=== PATIENT | female | born 1935 | race Caucasian/White ===

== ENCOUNTER 2016-07-07 09:21 | Emergency (ER) | payer OTHER ==
[2016-07-07 09:27] VITALS: RESP 16
--- NOTE | 2016-07-07 10:18 | EDPHY ---
H & P Time Seen by Provider: 07/07/16 09:43 HPI/ROS: CHIEF COMPLAINT: Fall, left shoulder pain HISTORY OF PRESENT ILLNESS: Patient is a 81-year-old female who presents emergency department after tripping and falling while taking out her trash. She fell forward on the garbage can landed on her left shoulder. She complains of moderate left shoulder pain. It is worse with movement. She also complains of left upper, lateral, posterior rib pain. No shortness of breath or cough. Patient complains of mild right great toe pain and bruising. She is able to ambulate without difficulty. She denies head trauma. No loss of consciousness. No neck or back pain. No focal neurologic deficits. No visual change. She was not lightheaded or dizzy. She had no preceding symptoms. REVIEW OF SYSTEMS: My complete review of systems is negative except as mentioned in the HPI. Past Medical/Surgical History: Includes hypertension, osteoporosis, GERD, depression Past surgical history: Noncontributory Social history: Patient does not smoke Smoking Status: Never smoked Physical Exam: Vitals noted GENERAL: Well-appearing, in no acute distress, alert. HEAD: No evidence of trauma. EYES: PERRLA, EOMI, normal to inspection. ENT: Airway intact, no dental or oral injury, no malocclusion, no hemotympanum , normal external examination. NECK: The trachea is midline. There is no crepitus. The C-spine is nontender. NEXUS criteria is negative (no midline tenderness, no distracting injury, no altered mental status, no recent alcohol use, no focal neurologic deficit). RESPIRATORY: Clear to auscultation bilaterally, no rales, rhonchi or wheezing. There is no crepitus or palpable rib fractures. CVS: Regular rate and rhythm, no rubs, murmurs, or gallops. ABDOMEN: Soft, nontender, nondistended, normal bowel sounds, no bruising or abrasions. Pelvis: Stable. No tenderness palpation. Hips full range of motion. GENITAL/RECTAL: Normal external exam. BACK: Normal to inspection, no spinal tenderness, no spinal step off, no notable bruising or abrasions. Patient has mild left lateral superior posterior chest wall tenderness palpation with no crepitus or palpable deformity. SKIN: Normal color, warm, dry. No pallor or diaphoresis. EXTREMITIES: Right upper extremity: Atraumatic. No visible signs of trauma. No tenderness palpation. Neurovascular intact distally. Left upper extremity: No visible signs of trauma. Mild tenderness to palpation over the distal clavicle. No deltoid or humeral tenderness palpation. Neurovascular intact distally. Right lower extremity: Mild ecchymoses at the base of her right great toe. There is mild tenderness palpation. No palpable deformity. No subungual hematoma. Normal sensation. Left lower extremity: Atraumatic. No visible signs of trauma. No tenderness palpation. Neurovascular intact distally. Atraumatic, neurovascularly intact distally in all extremities, pelvis is stable , hips with full range of motion, moves all extremities freely. NEURO/PSYCH: Alert and oriented x 3, GCS 15, normal mood and affect, normal motor sensory exam. Constitutional: Initial Vital Signs Temperature (C) 36.8 C 07/07/16 09:24 Heart Rate 83 07/07/16 09:24 Respiratory Rate 16 07/07/16 09:24 Blood Pressure 165/72 H 07/07/16 09:24 O2 Sat (%) 96 07/07/16 09:24 O2 Delivery Mode Room Air Allergies/Adverse Reactions: No Known Allergies Allergy (Unverified 07/07/16 09:27) Home Medications: Medication Instructions Recorded Hydrocodone/APAP 5/325 [[place] 1 - 2 tab PO Q4 #9 tab 07/07/16 5/325 (RX)] Medical Decision Making - Diagnostics Imaging Results: Imaging Impressions Shoulder X-Ray 07/07/16 09:32 Impression: Lateral left fourth and fifth rib fractures. 2. Left Shoulder , 3 Views History: Pain post trauma. Fall. Findings: There are acute lateral left fourth and fifth rib fractures. The humeral head is normally located. No shoulder joint fracture or dislocation is identified. There is hypertrophic spurring involving the medial humeral head. Impression: 1.Left fourth and fifth rib fractures. 2. Negative shoulder. 3. Right Foot , 3 views History:Pain post trauma. Fall. Findings: No fracture or dislocation is identified. There is scattered degenerative change. There is a large plantar calcaneal spur. Overall mineralization is normal. Impression: Nothing acute identified. Chest X-Ray 07/07/16 09:59 Impression: Lateral left fourth and fifth rib fractures. 2. Left Shoulder , 3 Views History: Pain post trauma. Fall. Findings: There are acute lateral left fourth and fifth rib fractures. The humeral head is normally located. No shoulder joint fracture or dislocation is identified. There is hypertrophic spurring involving the medial humeral head. Impression: 1.Left fourth and fifth rib fractures. 2. Negative shoulder. 3. Right Foot , 3 views History:Pain post trauma. Fall. Findings: No fracture or dislocation is identified. There is scattered degenerative change. There is a large plantar calcaneal spur. Overall mineralization is normal. Impression: Nothing acute identified. Foot X-Ray 07/07/16 09:59 Impression: Lateral left fourth and fifth rib fractures. 2. Left Shoulder , 3 Views History: Pain post trauma. Fall. Findings: There are acute lateral left fourth and fifth rib fractures. The humeral head is normally located. No shoulder joint fracture or dislocation is identified. There is hypertrophic spurring involving the medial humeral head. Impression: 1.Left fourth and fifth rib fractures. 2. Negative shoulder. 3. Right Foot , 3 views History:Pain post trauma. Fall. Findings: No fracture or dislocation is identified. There is scattered degenerative change. There is a large plantar calcaneal spur. Overall mineralization is normal. Impression: Nothing acute identified. ED Course/Re-evaluation: In the emergency department I discussed possible etiologies with the patient. I answered all her questions. Patient will have an x-ray of her left shoulder, chest and right foot. Left shoulder: Nondisplaced clavicle fracture. Chest x-ray: Patient has multiple left upper posterior rib fractures. No pneumothorax. Foot x-ray: No foot or toe fracture I discussed the results with the patient and her daughter. I answered all her questions. Patient's left elbow wound was clean and dressed. The patient was placed in left shoulder sling. She was given incentive spirometer. She is given warnings prior to leaving. She will return with worsening symptoms. Differential Diagnosis: My differential includes but is not limited to rib fracture, pneumothorax, hemothorax, clavicle fracture, shoulder fracture, shoulder contusion, AC separation, toe fracture, toe sprain, toe contusion. I doubt closed-head injury. I doubt spinal injury. Departure - Departure Disposition: Home, Routine, Self-Care Clinical Impression: Clavicle fracture Qualifiers: Encounter type: initial encounter Clavicle location: lateral end Fracture type : closed Fracture alignment: nondisplaced Laterality: left Qualified Code(s): S42.035A - Nondisplaced fracture of lateral end of left clavicle, initial encounter for closed fracture Rib fractures Qualifiers: Encounter type: initial encounter Rib fracture type: multiple ribs Fracture type: closed Laterality: left Qualified Code(s): S22.42XA - Multiple fractures of ribs, left side, initial encounter for closed fracture Toe contusion Qualifiers: Encounter type: initial encounter Toe: great toe Damage to nail status: without damage Laterality: right Qualified Code(s): S90.111A - Contusion of right great toe without damage to nail, initial encounter Condition: Good Instructions: Clavicle Fracture (ED), Rib Fracture (ED), How to Use an Incentive Spirometer (ED) Referrals: PREETI ZAMBRANO [Other] - 2-3 days, call for appt. Lester Gonzalez MD [Medical Doctor] - 5-7 days, call for appt. Prescriptions: Hydrocodone/APAP 5/325 [[place] 5/325 (RX)] 1 - 2 tab PO Q4 #9 tab
[2016-07-07 11:18] VITALS: BP 133/76; PULSE 81; TEMP 97.7; O2SAT 95
== END 2016-07-07 11:19 | disposition home or self-care (01) ==
DX: S42.035A Nondisplaced fracture of lateral end of left clavicle, initial encounter for closed fracture (principal); S22.42XA Multiple fractures of ribs, left side, initial encounter for closed fracture; S90.111A Contusion of right great toe without damage to nail, initial encounter; I10 Essential (primary) hypertension; W01.0XXA Fall on same level from slipping, tripping and stumbling without subsequent striking against object, initial encounter; Y92.89 Other specified places as the place of occurrence of the external cause; Y99.8 Other external cause status; Y93.89 Activity, other specified